=== PATIENT | female | born 1935 | race Caucasian/White ===

== ENCOUNTER 2017-01-10 06:40 | Day surgery (SDC) | payer MEDICARE, BC ==
[~2017-01-10] VITALS: Ht 162.6 cm; Wt 75.7 kg
[~2017-01-10 06:40] MED LIST: ADVAIR DISK1 IN; CIPRO500 MG PO; COMBIVENT IN; ELAVIL OR; FLEXERIL OR; HYDROCO/APAP1 TA9 PO; IBUPROFEN800 MG PO; LASIX 20 MG TAB20 MG PO; LOSARTAN POTAS100 MG PO; MULTIVITAMI3 OR; MULTIVITAMIN OR; NYSTATIN100000 M1 PO; PERCOCET 5/325M1 TAB OR; PROVENTIL IN; SYNTHROID OR; ULTRAM50 M1 OR; ULTRAM50 MG OR; VALIUM2 MG PO; VENTOLIN HFA IN; VITAMIN D400 UNI3 OR; XANAX0.25 MG OR; oxygen IN
[2017-01-10 11:02] VITALS: BP 175/78
== END 2017-01-10 09:55 | disposition home or self-care (01) ==
LOC: ORM 06:40
PROVIDERS: ATTEND Anesthesiology Pain Medicine
PROC: 3E0T33Z Introduction of Anti-inflammatory into Peripheral Nerves and Plexi, Percutaneous Approach (ICD-10-PCS; principal; 2017-01-10)
PROC: 3E0T3BZ Introduction of Anesthetic Agent into Peripheral Nerves and Plexi, Percutaneous Approach (ICD-10-PCS; 2017-01-10)
PROC: 3E0T33Z Introduction of Anti-inflammatory into Peripheral Nerves and Plexi, Percutaneous Approach (ICD-10-PCS; 2017-01-10)
PROC: 3E0T3BZ Introduction of Anesthetic Agent into Peripheral Nerves and Plexi, Percutaneous Approach (ICD-10-PCS; 2017-01-10)
PROC: 3E0T33Z Introduction of Anti-inflammatory into Peripheral Nerves and Plexi, Percutaneous Approach (ICD-10-PCS; 2017-01-10)
PROC: 3E0T3BZ Introduction of Anesthetic Agent into Peripheral Nerves and Plexi, Percutaneous Approach (ICD-10-PCS; 2017-01-10)
PROC: 3E0T33Z Introduction of Anti-inflammatory into Peripheral Nerves and Plexi, Percutaneous Approach (ICD-10-PCS; 2017-01-10)
PROC: 3E0T3BZ Introduction of Anesthetic Agent into Peripheral Nerves and Plexi, Percutaneous Approach (ICD-10-PCS; 2017-01-10)
PROC: 3E0T33Z Introduction of Anti-inflammatory into Peripheral Nerves and Plexi, Percutaneous Approach (ICD-10-PCS; 2017-01-10)
PROC: 3E0T3BZ Introduction of Anesthetic Agent into Peripheral Nerves and Plexi, Percutaneous Approach (ICD-10-PCS; 2017-01-10)
DX: M54.5 Low back pain (principal)

== ENCOUNTER 2017-01-24 05:58 | Day surgery (SDC) | payer MEDICARE, BC ==
[2017-01-24 07:50] VITALS: BP 131/61
== END 2017-01-24 08:45 | disposition home or self-care (01) ==
LOC: ORM 05:58
PROVIDERS: ATTEND Anesthesiology Pain Medicine
PROC: 3E0T33Z Introduction of Anti-inflammatory into Peripheral Nerves and Plexi, Percutaneous Approach (ICD-10-PCS; principal; 2017-01-24)
PROC: 3E0T3BZ Introduction of Anesthetic Agent into Peripheral Nerves and Plexi, Percutaneous Approach (ICD-10-PCS; 2017-01-24)
PROC: 3E0T33Z Introduction of Anti-inflammatory into Peripheral Nerves and Plexi, Percutaneous Approach (ICD-10-PCS; 2017-01-24)
PROC: 3E0T3BZ Introduction of Anesthetic Agent into Peripheral Nerves and Plexi, Percutaneous Approach (ICD-10-PCS; 2017-01-24)
PROC: 3E0T33Z Introduction of Anti-inflammatory into Peripheral Nerves and Plexi, Percutaneous Approach (ICD-10-PCS; 2017-01-24)
PROC: 3E0T3BZ Introduction of Anesthetic Agent into Peripheral Nerves and Plexi, Percutaneous Approach (ICD-10-PCS; 2017-01-24)
PROC: 3E0U33Z Introduction of Anti-inflammatory into Joints, Percutaneous Approach (ICD-10-PCS; 2017-01-24)
PROC: 3E0U3BZ Introduction of Anesthetic Agent into Joints, Percutaneous Approach (ICD-10-PCS; 2017-01-24)
DX: M54.5 Low back pain (principal); M46.1 Sacroiliitis, not elsewhere classified; M47.816 Spondylosis without myelopathy or radiculopathy, lumbar region
CPT/HCPCS: 64450 ×2; 64493; 64494; G0260

== ENCOUNTER 2019-09-05 22:15 | Emergency (ER) | payer MEDICARE, BC ==
[~2019-09-05] VITALS: Ht 162.6 cm; Wt 75.0 kg
[2019-09-05] MEDS ORDERED: ELAVIL25 MG PO (22:59)
[2019-09-05] MEDS ORDERED: AMLODIPINE BESYL5 MG PO (23:04)
[2019-09-05] MEDS ORDERED: ESCITALOPRAM OX10 MG PO (23:04)
[2019-09-06 02:24] VITALS: BP 134/64
== END 2019-09-06 02:24 | disposition short-term general hospital (02) ==
LOC: ED 22:15
PROC: 0T9B70Z Drainage of Bladder with Drainage Device, Via Natural or Artificial Opening (ICD-10-PCS; principal; 2019-09-05)
DX: S72.001A Fracture of unspecified part of neck of right femur, initial encounter for closed fracture (principal); I10 Essential (primary) hypertension; W01.0XXA Fall on same level from slipping, tripping and stumbling without subsequent striking against object, initial encounter; Y93.G3 Activity, cooking and baking; Y92.000 Kitchen of unspecified non-institutional (private) residence as the place of occurrence of the external cause

== ENCOUNTER 2022-08-14 23:13 | Emergency (ER) | payer MEDICARE, BC ==
[~2022-08-14] VITALS: Ht 162.6 cm; Wt 60.0 kg
[~2022-08-14 23:13] MED LIST changes: +AMLODIPINE BESYL5 MG PO; +ELAVIL25 MG PO; +ESCITALOPRAM OX10 MG PO
[2022-08-14] MEDS ORDERED: LOSARTAN POTASS50 MG PO (23:39)
[2022-08-14] MEDS ORDERED: AMITRIPTYLINE100 M1 PO (23:39)
[2022-08-14] MEDS ORDERED: SYNTHROID88 MCG PO (23:40)
[2022-08-14] MEDS ORDERED: ASPIRIN81 MG PO (23:41)
[2022-08-14] MEDS ORDERED: ADVAIR DISK1 INHW/SPAC (23:42)
[2022-08-14] MEDS ORDERED: [UNRECOGNIZED DRUG - OTHER] PO (23:42)
[2022-08-14] MEDS ORDERED: ALBUTEROL SUL0.083 % IN (23:43)
[2022-08-14] MEDS ORDERED: VENTOLIN HFA IN (23:44)
[2022-08-14 23:45] VITALS: BP 135/61
[2022-08-15] VITALS (16 sets, daily range): BP systolic 90–126; BP diastolic 40–59
== END 2022-08-15 05:15 | disposition short-term general hospital (02) ==
LOC: ED 23:13
DX: S79.001A Unspecified physeal fracture of upper end of right femur, initial encounter for closed fracture (principal); M97.01XA Periprosthetic fracture around internal prosthetic right hip joint, initial encounter; I10 Essential (primary) hypertension; W18.39XA Other fall on same level, initial encounter; Z96.641 Presence of right artificial hip joint